=== PATIENT | female | born 1995 | race Hispanic/Latino ===

== ENCOUNTER 2018-04-30 21:06 | Emergency (ER) | payer SELFPAY ==
[2018-04-30] MEDS ORDERED: Phenazopyridine HCl 97.5 MG TABLET PO SCH (21:30)
[2018-04-30 22:29] LABS: Bilirubin Negative (Negative); Blood, Urine Trace (Negative); Clarity CLEAR (Clear); Glucose, Urine (Dipstick) Negative (Negative); Leukocyte Large (Negative); Nitrite Negative (Negative); Protein, Urine (Dipstick) Trace mg/dL (Neg-Trace); pH, Urine 6.5 (5.0-9.0)
[2018-04-30 22:31] LABS: Bacteria/HPF None Seen HPF (None Seen); Hyaline Casts/LPF 0-3 HYALINE CAST LPF (0-3 Hyaline); Squamous Epithelial 0-3 HPF (0-3)
[2018-04-30 22:32] LABS: Pregnancy Test - Urine (BHCG) Negative (Negative); Pregu Control Background? CLEAR/WHITE (CLR/WHITE); Pregu Control Bar Appear? YES (CONTROL BAR); Yeast-AUWi Flag 30.8 (0-25.0)
[2018-05-01] MEDS ORDERED: Cephalexin 250 MG CAP ONE (00:01)
== END 2018-05-01 00:08 | disposition home or self-care (01) ==
LOC: ERS 21:06
DX: N39.0 Urinary tract infection, site not specified (principal)
CPT/HCPCS: 81003; 81015; 81025; 99283